=== PATIENT | female | born 1945 | race Two or more races ===

== ENCOUNTER 2016-09-10 01:49 | Emergency (ER) | payer BC ==
[~2016-09-10] VITALS: Ht 160 cm; Wt 88.5 kg
[2016-09-10] MEDS: diphenhydrAMINE 50 MG/1 ML VIAL IM ONE (02:44)
[2016-09-10] MEDS ORDERED: diphenhydrAMINE 50 MG/1 ML VIAL ONE (02:51)
--- NOTE | 2016-09-10 02:58 | NUR ---
Patient discharged to home in stable conditon. Written and verbal after care instructions given. Patient verbalizes understanding of instructions.
== END 2016-09-10 03:00 | disposition home or self-care (01) ==
LOC: ER 02:38
DX: L50.9 Urticaria, unspecified (principal)
CPT/HCPCS: A4663; J1200